=== PATIENT | female | born 1955 | race Caucasian/White ===

== ENCOUNTER 2017-02-14 12:06 | Outpatient (CLI) | payer BC ==
[~2017-02-14 12:06] MED LIST: Gadobenate Dimeglumine 529 MG/1 ML (20ML VIAL) ONE
--- NOTE | 2017-02-14 15:55 | MRI ---
EXAM: BRAIN MRI WITH AND WITHOUT CONTRAST: COMPARISON: 11/25/14. HISTORY: Difficulty with talking and speaking during Easter. TECHNIQUE: A brain MRI is performed with and without intravenous Gadolinium administration. Multisequential, m ultiplanar imaging is performed. FINDINGS: No hemorrhage on the axial gradient echo sequence. Calvarium has a normal marrow signal intensity. Midline brain parenchymal structures are unremarkab le. Central arterial flow voids are maintained. Absent restricted diffusion. Limited evaluation on the axial T2 sequences due to motion degradation. No parenchymal mass, mass effect, or midline shift. Brain volume is age appropriate. Cortical montelongo -white matter differentiation is preserved. Ventricles and sulci are patent and symmetric. No pathologic enhancement of the brain parenchyma. Adequate aeration of the sinuses and mastoid air cells. Minimal white matter hyperintensities on the axial T2 and FLAIR sequence, unchanged from the prior e xam. IMPRESSION: 1. Absent restricted diffusion. No acute infarct. 2. Chronic small-vessel ischemic change of the white matter. 3. No significant interval change. POS: [facility]
--- NOTE | 2017-02-14 16:04 | MRI ---
EXAM: LUMBAR SPINE MRI WITHOUT CONTRAST: COMPARISON: 11/25/14. HISTORY: Chronic low back pain with radiation down the legs. TECHNIQUE: Lumbar spine MRI is performed without intravenous Gadolinium administration. Multisequential, multi planar imaging is performed. FINDINGS: There is appropriate T1 marrow signal intensity in the lumbar vertebrae. Lumbar spine vertebral bod y height is maintained. No significant STIR hyperintensity to suggest vertebral body edema. The de gree of loss of vertebral body height at L1 is unchanged. There is symmetric signal intensity of the psoas muscles. T2 hyperintensities in the left renal pel vis likely represent parapelvic cysts. Conus medullaris terminates at the inferior end plate of L1. No significant STIR hyperintensity to suggest vertebral body edema or ligamentous injury. T12-L1. Adequate disk hydration. No significant central canal stenosis. Neural foramina are paten t. L1-L2: Adequate disk hydration. No significant central canal stenosis. Neural foramen are patent. L2-L3: Disk desiccation without significant loss of disk space height. Generalized disk bulge, lig amentum flavum thickening, and facet hypertrophy result in minimal central canal stenosis. Neural f oramina are patent bilaterally. L3-L4: Disk desiccation without significant loss of disk space height. No significant posterior di sk abnormality. There is ligamentum flavum thickening and facet hypertrophy. No significant centra l canal stenosis. Neural foramen are patent bilaterally. L4-L5: Disk desiccation without significant loss of disk space height. There is a generalized disk bulge, ligamentum flavum thickening, and facet hypertrophy result in moderate central canal stenosi s. The degree of central canal stenosis has not progressed when compared to the previous examinatio n. There is fluid in both intraarticular facet joints. There is bilateral facet hypertrophy. Ther e is a subtle T2 and STIR hyperintensity along the left aspect of the disk which may represent a sma ll annular fissure at the level of the neural foramen. This abnormal signal intensity was not defin itively seen on the previous exam. Mild to moderate bilateral foraminal narrowing. L5-S1: Adequate disk hydration. There is a central/left subarticular disk protrusion. Disk protru alhaji has slightly progressed when compared to the previous examination. Currently, there is complet e obscuration of the traversing left S1 nerve root. Previously, the traversing left S1 nerve root w as only partially obscured. No significant stenosis of the thecal sac. Right subarticular zone is maintained. Mild bilateral foraminal narrowing. IMPRESSION: 1. Interval worsening narrowing of the left subarticular zone at L5-S1 with complete obscuration of the traversing left S1 nerve root. 2. Small annular fissure at the left foraminal aspect of the disk at L4-L5. POS: [facility]
== END 2017-02-14 12:07 | disposition home or self-care (01) ==
LOC: SCSMRI 12:06
PROVIDERS: ATTEND Psychiatry & Neurology Neurology
DX: G43.019 Migraine without aura, intractable, without status migrainosus (principal); G93.89 Other specified disorders of brain
CPT/HCPCS: 70553; 72148; A9579

== ENCOUNTER 2017-08-16 11:55 | Outpatient (CLI) | payer BC | END 2017-08-16 11:56 | disposition home or self-care (01) | LOC: CTENTCT 11:55 | PROVIDERS: ATTEND Otolaryngology Plastic Surgery within the Head & Neck | DX: J32.9 Chronic sinusitis, unspecified (principal) | CPT/HCPCS: 70486 ==

== ENCOUNTER → 2017-10-24 | Day surgery (SDC) | payer BC ==
[2017-10-23 10:36] VITALS: BMI 34.3
[~2017-10-24] MED LIST changes: +Dexamethasone 20 MG/5 ML VIAL ONE; +Famotidine/PF 20 mg/2ml Vial ONE; +Fentanyl 100 MCG/2 ML VIAL ONE; -Gadobenate Dimeglumine 529 MG/1 ML (20ML VIAL) ONE; +Lidocaine 1% PF 5 ML VIAL ONE; +Lidocaine 1% w/Epinephrine 1:100K 30 ML VIAL ONE; +Midazolam HCl 2 mg/2 ml Vial ONE; +Ondansetron HCl/PF 4 MG/2 ML Vial ONE; +Oxymetazoline HCl 0.05% ( 15 ML ) ONE; +PROPOFOL 200 MG/20 ML VIAL ONE
[2017-10-24 11:00] LABS: Anion Gap 14 mmol/L (10-20); BUN (Urea Nitrogen) 29 mg/dL (9.8-20.1); Calc. Creatinine Clearance 43 mL/min (70-130); Carbon Dioxide 28 mmol/L (23-31); Chloride 101 mmol/L (98-107); Estimated GFR-MDRD 31; Glucose 185 mg/dL (80-115); Sodium 138 mmol/L (136-145)
--- NOTE | 2017-10-25 10:54 | OP ---
PREOPERATIVE DIAGNOSES: 1. Recurrent acute rhinosinusitis. 2. Bilateral middle turbinate victoriano bullosa. 3. Bilateral inferior turbinate hypertrophy. 4. Nasal obstruction. POSTOPERATIVE DIAGNOSES: 1. Recurrent acute rhinosinusitis. 2. Bilateral middle turbinate victoriano bullosa. 3. Bilateral inferior turbinate hypertrophy. 4. Nasal obstruction. PROCEDURES: 1. Bilateral endoscopic sinus surgery, total ethmoidectomies. 2. Bilateral endoscopic sinus surgery, maxillary antrostomies. 3. Bilateral endoscopic sinus surgery, frontal sinusotomies. 4. Bilateral endoscopic resection of middle turbinate victoriano bullosa. 5. Bilateral inferior turbinate submucosal resection. SURGEON: Luis Alfredo Puri M.D. ESTIMATED BLOOD LOSS: 50 mL. COMPLICATIONS: None. ANESTHESIA: GETA. DESCRIPTION OF PROCEDURE: The patient was taken to the operating room and placed supine on the table . General endotracheal anesthesia was obtained by the Anesthesia staff. Tube was secured in the lef t lower lip. The patient was then prepped and draped for standard surgical procedure. Following thi s, 1% lidocaine with 1:10,000 epinephrine was injected using the 0-degree endoscope for guidance. Th e injections were made into the inferior turbinates, middle turbinates and lateral nasal wall. Follo wing this, the sickle knife was used to make vertical incision in the anterior face of the large midd le turbinate victoriano bullosas. The lateral portions of these victoriano bullosas were then resected using a combination of the microdebrider and straight Blakesley forceps. Following this, the uncinate pro cess which was noted to be lateralized and atrophic was anteriorly fractured using the ball-ended pro be. The uncinate process was then removed using the straight microdebrider and the Blakesley forceps bilaterally. Following this, the natural maxillary sinus was identified using the curved microdebri mylene. The maxillary sinus ostia was then widened bilaterally. Following this, ethmoidal bulla was id entified bilaterally and was punctured on its medial and inferior aspect and was removed using the mi crodebrider and straight Blakesley forceps. Following this, the grand lamella was then identified bi laterally and was then punctured into the posterior ethmoidal cells. Working from posterior to anter ior, the ethmoidal cells were opened in a mucosal-sparing technique. Following this, the 45-degree s cope and the upbiting microdebrider was used to further open the frontal recess cells as well as open the frontal sinus ostia bilaterally using the curved microdebrider. Following this, the nasal cavit y was irrigated. Meropacks were placed in the middle meatus. The patient tolerated the procedure we ll.
== END ==
LOC: SDC 10:01
PROVIDERS: ATTEND Otolaryngology Plastic Surgery within the Head & Neck
PROC: 099Q8ZZ Drainage of Right Maxillary Sinus, Via Natural or Artificial Opening Endoscopic (ICD-10-PCS; principal; 2017-10-24)
PROC: 09BT8ZZ Excision of Left Frontal Sinus, Via Natural or Artificial Opening Endoscopic (ICD-10-PCS; principal; 2017-10-24)
PROC: 09TL0ZZ Resection of Nasal Turbinate, Open Approach (ICD-10-PCS; principal; 2017-10-24)
PROC: 09TL8ZZ Resection of Nasal Turbinate, Via Natural or Artificial Opening Endoscopic (ICD-10-PCS; principal; 2017-10-24)
PROC: 09TV8ZZ Resection of Left Ethmoid Sinus, Via Natural or Artificial Opening Endoscopic (ICD-10-PCS; principal; 2017-10-24)
PROC: 099R8ZZ Drainage of Left Maxillary Sinus, Via Natural or Artificial Opening Endoscopic (ICD-10-PCS; principal; 2017-10-24)
PROC: 09BS8ZZ Excision of Right Frontal Sinus, Via Natural or Artificial Opening Endoscopic (ICD-10-PCS; principal; 2017-10-24)
PROC: 09TU8ZZ Resection of Right Ethmoid Sinus, Via Natural or Artificial Opening Endoscopic (ICD-10-PCS; principal; 2017-10-24)
DX: J01.81 Other acute recurrent sinusitis (principal); J32.8 Other chronic sinusitis; J34.3 Hypertrophy of nasal turbinates; J34.89 Other specified disorders of nose and nasal sinuses; I10 Essential (primary) hypertension; K21.9 Gastro-esophageal reflux disease without esophagitis; M19.90 Unspecified osteoarthritis, unspecified site; F41.9 Anxiety disorder, unspecified; F32.9 Major depressive disorder, single episode, unspecified; Z88.0 Allergy status to penicillin; Z88.5 Allergy status to narcotic agent; Z88.7 Allergy status to serum and vaccine; Z88.2 Allergy status to sulfonamides; Z79.899 Other long term (current) drug therapy
CPT/HCPCS: 36416; 80048; 85014; 93005; 93010; J1100; J2001; J2250; J2405; J2704; J3010; S0028

== ENCOUNTER 2018-01-30 15:48 | Emergency (ER) | payer BC ==
[2018-01-30 16:42] LABS: Bilirubin Negative (Negative); Blood, Urine Negative (Negative); Clarity CLEAR (Clear); Glucose, Urine (Dipstick) 500 mg/dL (Negative); Leukocyte Small (Negative); Nitrite Negative (Negative); Protein, Urine (Dipstick) Negative (Neg-Trace); Specific Gravity, Urine 1.005 (1.002-1.036); Urobilinogen 0.2 mg/dL (0.2-1.0); pH, Urine 5.5 (5.0-9.0)
[2018-01-30 16:42] LABS: #Eosinphils 0.3 thou/uL (0.0-0.7); #Lymphocytes 2.4 thou/uL (1.20-3.40); #Monocytes 0.5 thou/uL (0.11-0.59); #Neutrophils 5.7 thou/uL (1.40-6.50); %Basophils 0.3 % (0.0-1.0); %Eosinophils 3.4 % (0.0-10.0); %Lymphocytes 26.6 % (21.0-51.0); %Neutrophils 63.7 % (42.0-75.0); Hemoglobin 11.3 g/dL (12.0-16.0); Mean Corpuscular HGB CONC 33.6 g/dL (32.0-36.0); Mean Corpuscular Hemoglobin 29.7 pg (27.0-31.0); Mean Corpuscular Volume 88.5 fL (78.0-98.0); Mean Platelet Volume 9.7 fL (7.4-10.4); Platelet Count 257 thou/uL (130-400); RBC Distribution Width 11.7 % (11.5-14.5); Red Blood Cell (RBC) Count 3.79 mill/uL (4.20-5.40)
[2018-01-30 16:45] LABS: Bacteria/HPF Rare-Few HPF (None Seen); Hyaline Casts/LPF 0-3 HYALINE CAST LPF (0-3 Hyaline); RBC/HPF 0-3 HPF (0-3); Squamous Epithelial 0-3 HPF (0-3)
[2018-01-30 17:02] LABS: ALT (SGPT) 35 U/L (8-55); AST (SGOT) 21 U/L (5-34); Albumin 4.1 g/dL (3.4-4.8); Alkaline Phosphatase 116 U/L (40-150); Anion Gap 16 mmol/L (10-20); BUN (Urea Nitrogen) 27 mg/dL (9.8-20.1); Bilirubin, Total 0.2 mg/dL (0.2-1.2); CK (CPK) 91 U/L (29-168); Calc. Creatinine Clearance 0 mL/min (70-130); Calcium 8.9 mg/dL (7.8-10.44); Carbon Dioxide 25 mmol/L (23-31); Chloride 96 mmol/L (98-107); Estimated GFR-MDRD 25; Globulin 2.9 g/dL (2.4-3.5); Glucose 319 mg/dL (80-115); Potassium 4.1 mmol/L (3.5-5.1); Sodium 133 mmol/L (136-145)
[2018-01-30 17:06] LABS: CKMB 1.6 ng/mL (0-6.6); Troponin I Less than 0.010 ng/mL (< 0.028)
== END 2018-01-30 17:27 | disposition home or self-care (01) ==
LOC: ERS 15:48
DX: N18.9 Chronic kidney disease, unspecified (principal); E03.9 Hypothyroidism, unspecified; K21.9 Gastro-esophageal reflux disease without esophagitis; G43.909 Migraine, unspecified, not intractable, without status migrainosus; M81.0 Age-related osteoporosis without current pathological fracture; E11.9 Type 2 diabetes mellitus without complications; I10 Essential (primary) hypertension; F41.9 Anxiety disorder, unspecified; F32.9 Major depressive disorder, single episode, unspecified; Z79.899 Other long term (current) drug therapy; Z79.4 Long term (current) use of insulin
CPT/HCPCS: 36415; 80053; 81003; 81015; 82553; 83605; 84484; 85025; 87077; 87086; 87186; 99285

== ENCOUNTER 2021-03-03 08:20 | Outpatient (CLI) | payer MEDICARE, BC ==
[2021-03-03 10:09] LABS: #Basophils 0.1 10x3/uL (0.0-0.2); #Eosinphils 0.6 10x3/uL (0.0-0.5); #Monocytes 0.6 10x3/uL (0.0-1.1); #Neutrophils 5.8 10x3/uL (1.5-8.4); %Basophils 0.7 % (0.0-2.0); %Lymphocytes 24.6 % (18.0-47.0); %Monocytes 6.5 % (0.0-10.0); %Neutrophils 61.8 % (40.0-75.0); Hemoglobin 11.7 g/dL (12.0-15.5); Mean Corpuscular HGB CONC 31.1 g/dL (32.0-36.0); Mean Corpuscular Hemoglobin 27.1 pg (27.0-33.0); Mean Corpuscular Volume 87.2 fl (81.6-98.3); Mean Platelet Volume 12.3 fl (7.4-10.4); Platelet Count 330 10x3/uL (150-450); RBC Distribution Width 15.7 % (11.5-14.5); Red Blood Cell (RBC) Count 4.31 10x6/uL (3.90-5.03); White Blood Cell (WBC) Count 9.4 10x3/uL (3.5-10.5)
[2021-03-03 10:30] LABS: Anion Gap 13 mmol/L (10-20); BUN (Urea Nitrogen) 18 mg/dL (9.8-20.1); Calc. Creatinine Clearance 0 mL/min (70-130); Carbon Dioxide 28 mmol/L (23-31); Chloride 101 mmol/L (98-107); Glucose 203 mg/dL (80-115); Potassium 4.4 mmol/L (3.5-5.1); Sodium 138 mmol/L (136-145)
[2021-03-04 01:05] LABS: SARS-CoV-2 PCR by NAA Not Detected (NotDetected)
== END 2021-03-03 08:21 | disposition home or self-care (01) ==
LOC: LABBT 08:20
PROVIDERS: ATTEND Orthopaedic Surgery Hand Surgery
DX: Z01.818 Encounter for other preprocedural examination (principal); M65.331 Trigger finger, right middle finger; Z20.822 Contact with and (suspected) exposure to COVID-19
CPT/HCPCS: 80048; 85025; 93005; U0003; U0005; 93010

== ENCOUNTER 2021-03-08 08:28 | Day surgery (SDC) | payer MEDICARE, BC ==
[2021-03-08] MEDS ORDERED: ceFAZolin 2 GM/DEX 5% 100 ML BAG ONE (09:37)
[2021-03-08] MEDS ORDERED: Midazolam HCl 2 mg/2 ml Vial ONE ×2 (11:01→14:13)
[2021-03-08] MEDS ORDERED: Bacitracin Zinc Ointment 30 gm TUBE ONE (14:12)
[2021-03-08] MEDS ORDERED: Fentanyl 100 MCG/2 ML VIAL ONE (14:13)
[2021-03-08] MEDS ORDERED: Betamet Acet/Betamet Na Ph 30 MG/5 ML VIAL ONE (14:22)
[2021-03-08] MEDS ORDERED: Vancomycin 1 GM/200 ML BAG ONE (14:25)
[2021-03-08] MEDS ORDERED: Lidocaine 1% PF 5 ML VIAL ONE (14:30)
[2021-03-08] MEDS ORDERED: Ketorolac Tromethamine 30 MG/ML VIAL ONE (14:30)
[2021-03-08] MEDS ORDERED: PROPOFOL 200 MG/20 ML VIAL ONE (14:30)
[2021-03-08] MEDS ORDERED: Ondansetron PF 4 MG/2 ML Vial ONE (14:30)
[2021-03-08] MEDS ORDERED: Sodium Chloride 0.9% 10 ML ONE (15:54)
== END 2021-03-08 17:10 | disposition home or self-care (01) ==
LOC: SDC 08:28
PROVIDERS: ATTEND Orthopaedic Surgery Hand Surgery
PROC: 0LN70ZZ Release Right Hand Tendon, Open Approach (ICD-10-PCS; principal; 2021-03-08)
DX: M65.331 Trigger finger, right middle finger (principal); M65.841 Other synovitis and tenosynovitis, right hand; Z88.0 Allergy status to penicillin; Z88.2 Allergy status to sulfonamides; Z88.5 Allergy status to narcotic agent; Z88.7 Allergy status to serum and vaccine; Z90.49 Acquired absence of other specified parts of digestive tract; Z90.710 Acquired absence of both cervix and uterus; Z98.890 Other specified postprocedural states
CPT/HCPCS: J0702; J1885; J2250; J2405; J2704; J3010; J3370

== ENCOUNTER 2021-05-23 15:26 | Outpatient (CLI) | payer MEDICARE, BC | END 2021-05-23 15:27 | disposition home or self-care (01) | LOC: BICRAD 15:26 | PROVIDERS: ATTEND Anesthesiology Pain Medicine | DX: M47.812 Spondylosis without myelopathy or radiculopathy, cervical region (principal) | CPT/HCPCS: 72040 ==

== ENCOUNTER 2021-05-30 09:32 | Outpatient (CLI) | payer MEDICARE, BC | END 2021-05-30 09:33 | disposition home or self-care (01) | LOC: BICMRI 09:32 | PROVIDERS: ATTEND Anesthesiology Pain Medicine | DX: M47.816 Spondylosis without myelopathy or radiculopathy, lumbar region (principal); M48.061 Spinal stenosis, lumbar region without neurogenic claudication | CPT/HCPCS: 72148 ==